=== PATIENT | male | born 2000 | race Hispanic/Latino ===

== ENCOUNTER 2024-07-29 10:16 | Emergency (ER) | payer SELFPAY ==
[2024-07-29 10:57] LABS: #Basophils 0.04 10x3/uL (0.0-0.2); %Basophils 0.4 % (0.0-1.0); %Eosinophils 0.4 % (0.0-10.0); %Lymphocytes 20.1 % (21.0-51.0); %Monocytes 6.5 % (0.0-10.0); %Neutrophils 72.3 % (42.0-75.0); Hematocrit 48.6 % (42.0-52.0); Hemoglobin 17.4 g/dL (14.0-18.0); Mean Corpuscular HGB CONC 35.8 g/dL (32.0-36.0); Mean Corpuscular Hemoglobin 31.4 pg (27.0-31.0); Mean Corpuscular Volume 87.6 fL (78.0-98.0); Mean Platelet Volume 9.9 fL (7.4-10.4); Platelet Count 344 10x3/uL (130-400); RBC Distribution Width 11.8 % (11.5-14.5); Red Blood Cell (RBC) Count 5.55 mill/uL (4.70-6.10)
[2024-07-29 11:14] LABS: ALT (SGPT) 519 U/L (8-55); AST (SGOT) 249 U/L (5-34); Albumin 4.9 g/dL (3.5-5.0); Alkaline Phosphatase 86 U/L (40-110); Anion Gap 19 mmol/L (10-20); BUN (Urea Nitrogen) 7 mg/dL (8.9-20.6); Bilirubin, Total 0.8 mg/dL (0.2-1.2); Calc. Creatinine Clearance 0 mL/min (70-130); Calcium 9.9 mg/dL (7.8-10.44); Carbon Dioxide 21 mmol/L (22-29); Chloride 103 mmol/L (98-107); Estimated GFR 124; Globulin 4.2 g/dL (2.4-3.5); Glucose 148 mg/dL (70-105); Lipase 18 U/L (8-78); Potassium 3.9 mmol/L (3.5-5.1); Protein, Total 9.1 g/dL (6.0-8.3); Sodium 139 mmol/L (136-145)
[2024-07-29 11:19] LABS: Troponin I Less than 0.010 ng/mL (< 0.028)
[2024-07-29] MEDS ORDERED: Mag-Al 1200 mg/1200 mg/30 ML UDCUP ONE (11:41)
[2024-07-29] MEDS ORDERED: Pantoprazole 40 MG VIAL ONE (11:42)
[2024-07-29] MEDS ORDERED: Lidocaine Viscous Sol 2% 15 ml UD Cup ONE (11:42)
[2024-07-29 12:13] LABS: Bacteria/HPF None Seen HPF (None Seen); Bilirubin Negative (Negative); Blood, Urine Negative (Negative); CAUTI Indications for Culture Dysuria,urgency,freq; Clarity Clear (Clear); Glucose, Urine (Dipstick) Normal (Negative); Ketone, Urine Negative (Negative); Leukocyte Negative Leu/uL (Negative); Nitrite Negative (Negative); Protein, Urine (Dipstick) 30 mg/dL (Neg-Trace); RBC/HPF 0-3 HPF (0-3); Specific Gravity, Urine 1.011 (1.002-1.036); Squamous Epithelial None Seen HPF (0-3); Urobilinogen Normal mg/dL (Less than 2); WBC/HPF 0-3 HPF (0-3)
[2024-07-29 12:14] LABS: Urine Culture Reflex No No
[2024-07-29 12:58] LABS: Amphetamine Detected (NotDetected); Barbiturates Screen Not Detected (NotDetected); Benzodiazepine Screen Not Detected (NotDetected); Cocaine Metabolite Screen Not Detected (NotDetected); Methadone Not Detected (NotDetected); Methamphetamine Detected (NotDetected); Opiate Screen Not Detected (NotDetected); Oxycodone Screen Not Detected (NotDetected); Phencyclidine (PCP) Not Detected (NotDetected); THC/Cannabinoid Screen Not Detected (NotDetected); Tricyclic Screen Not Detected (NotDetected)
[2024-07-29 12:59] LABS: Acetaminophen Less than 10 mcg/mL (Less than 10); Alcohol Less than 10.0 mg/dL (Less than 10); Salicylate Less than 8.0 mg/dL (Less than 8.0)
[2024-07-29] MEDS ORDERED: Lorazepam 2 MG/ML VIAL ONE (13:52)
== END 2024-07-29 16:20 | disposition home or self-care (01) ==
LOC: ERS 10:16
DX: R00.0 Tachycardia, unspecified (principal); R74.01 Elevation of levels of liver transaminase levels; F15.90 Other stimulant use, unspecified, uncomplicated
CPT/HCPCS: 36415; 71045; 76705; 80053; 80306; 80307; 81001; 83690; 84443; 84484; 85025; 93005; 96361; 96374; 96375; J2060; J2470